=== PATIENT | female | born 2000 | race Two or more races ===

== ENCOUNTER 2022-07-13 18:46 | Inpatient (IN) | payer MEDICAID, OTHER ==
[~2022-07-13] VITALS: Ht 152.4 cm; Wt 46.4 kg
[2022-07-13 19:26] LABS: Urine Bacteria FEW /hpf (None Seen); Urine Blood 3+ /uL (Negative); Urine Mucus FEW (None Seen); Urine Specific Gravity 1.012 (1.001-1.035); Urine WBC 503 /hpf (0 - 5); Urine WBC Clumps PRESENT /hpf (None Seen)
[2022-07-13] MEDS ORDERED: SODIUM CHLORIDE 0.9% 1,000 ML IV ONE (21:45)
[2022-07-13] MEDS ORDERED: cefTRIAXone 1GM/50ML D5W 50 ML IV ONE (21:45)
[2022-07-13 21:47] LABS: Basophils # (auto) 0.1 10 ^3/uL (0-0.2); Basophils % (auto) 0.3 % (0.0-2.0); Eosinophils # (auto) 0.1 10 ^3/uL (0-0.8); Eosinophils % (auto) 0.4 % (0.0-7.0); Hematocrit 35.8 % (36.0-46.0); Hemoglobin 12.3 g/dL (12.2-16.2); Lymphocytes # (auto) 2.2 10 ^3/uL (0.4-5.4); Mean Corpuscular Hemoglobin 29.6 pg (28.0-32.0); Mean Corpuscular Hgb Conc. 34.2 g/dL (32.0-36.0); Mean Corpuscular Volume 86.3 fL (80.0-100.0); Monocytes # (auto) 0.8 10 ^3/uL (0-1.3); Monocytes % (auto) 3.8 % (0.0-12.0); Neutrophils # (auto) 18.3 10 ^3/uL (1.6-8.6); Neutrophils % (auto) 85.5 % (37.0-80.0); Nucleated Red Blood Cells % 0.1 %; Red Blood Cells 4.15 10^6/uL (4.0-5.20); Red Cell Distribution Width 13.2 % (11.8-14.3); White Blood Cell 21.5 10^3/uL (4.4-10.8)
[2022-07-13 22:04] LABS: Albumin 3.5 g/dL (3.4-5.0); Calcium 9.3 mg/dL (8.5-10.1); Potassium 4.1 mmol/L (3.5-5.1)
[2022-07-13 22:20] LABS: BUN/Creatinine Ratio 22.5 (10.0-20.0); Bilirubin, Total 0.2 mg/dL (0.2-1.0); Total Protein 7.3 g/dL (6.4-8.2)
[2022-07-13] MEDS ORDERED: SODIUM CHLORIDE 0.9% 2,000 ML IV ONE (23:00)
[2022-07-13] MEDS ORDERED: CEFTRIAXONE SODIUM 2 GM in D5W 5% 100 ML IV ONE (23:00)
[2022-07-13] MEDS ORDERED: ONDANSETRON HCL 4 MG/2 ML VIAL IV PRN (23:30)
[2022-07-13] MEDS ORDERED: DOCUSATE SOD 100 MG CAP PO PRN (23:30)
[2022-07-13] MEDS ORDERED: ACETAMINOPHEN 325 MG TAB PO PRN (23:30)
[2022-07-14] MEDS ORDERED: cefTRIAXone SOD 1,000 MG VL ONE (01:38)
[2022-07-14] MEDS: SODIUM CHLORIDE 0.9% 1,000 ML IV SCH ×3 (02:14→19:30)
[2022-07-14 05:32] LABS: Basophils # (auto) 0.2 10 ^3/uL (0-0.2); Basophils % (auto) 1.1 % (0.0-2.0); Eosinophils # (auto) 0.1 10 ^3/uL (0-0.8); Eosinophils % (auto) 0.5 % (0.0-7.0); Hematocrit 30.5 % (36.0-46.0); Hemoglobin 10.5 g/dL (12.2-16.2); Lymphocytes # (auto) 2.1 10 ^3/uL (0.4-5.4); Lymphocytes % (auto) 12.4 % (10.0-50.0); Mean Corpuscular Hemoglobin 29.9 pg (28.0-32.0); Mean Corpuscular Hgb Conc. 34.5 g/dL (32.0-36.0); Mean Corpuscular Volume 86.6 fL (80.0-100.0); Monocytes # (auto) 0.7 10 ^3/uL (0-1.3); Monocytes % (auto) 4.4 % (0.0-12.0); Neutrophils # (auto) 13.5 10 ^3/uL (1.6-8.6); Neutrophils % (auto) 81.6 % (37.0-80.0); Nucleated Red Blood Cells % 0.1 %; Red Blood Cells 3.52 10^6/uL (4.0-5.20); Red Cell Distribution Width 13.1 % (11.8-14.3); White Blood Cell 16.6 10^3/uL (4.4-10.8)
[2022-07-14 05:56] LABS: Albumin 2.6 g/dL (3.4-5.0); Potassium 3.9 mmol/L (3.5-5.1)
[2022-07-14 05:58] LABS: BUN/Creatinine Ratio 23.3 (10.0-20.0)
[2022-07-14 06:01] LABS: Bilirubin, Total 0.3 mg/dL (0.2-1.0)
[2022-07-14] MEDS: cefTRIAXone 1GM/50ML D5W 50 ML IV SCH (10:41)
[2022-07-14] MEDS: PRENATAL VITAMIN TAB PO SCH (11:01)
[2022-07-14 22:00] VITALS: BP 99/53
[2022-07-15 05:00] VITALS: BP 91/54
[2022-07-15] MEDS: SODIUM CHLORIDE 0.9% 1,000 ML IV SCH ×2 (05:11→19:00)
[2022-07-15 09:00] VITALS: BP 97/45
[2022-07-15] MEDS: PRENATAL VITAMIN TAB PO SCH (11:08)
[2022-07-15 13:00] VITALS: BP 98/50
[2022-07-15] MEDS: cefTRIAXone 1GM/50ML D5W 50 ML IV SCH (13:22)
[2022-07-15 17:00] VITALS: BP 103/55
[2022-07-15 22:00] VITALS: BP 128/47
[2022-07-16] MEDS: SODIUM CHLORIDE 0.9% 1,000 ML IV SCH ×2 (01:30→11:30)
[2022-07-16 05:00] VITALS: BP 100/49
[2022-07-16 09:00] VITALS: BP 100/42
[2022-07-16] MEDS: PRENATAL VITAMIN TAB PO SCH (09:25)
[2022-07-16] MEDS: cefTRIAXone 1GM/50ML D5W 50 ML IV SCH (09:25)
[2022-07-16] MEDS ORDERED: AUG875T PO (10:50)
[2022-07-16 12:59] VITALS: BP 114/61
== END 2022-07-16 14:00 | disposition home or self-care (01) | DRG 566 ==
LOC: ER 18:46 → OVERFLOW 23:33 → WEST WING 07-14 17:16
PROVIDERS: ADMIT Nurse Practitioner Family; ATTEND Internal Medicine
DX: O23.02 Infections of kidney in pregnancy, second trimester (principal); O99.112 Other diseases of the blood and blood-forming organs and certain disorders involving the immune mechanism complicating pregnancy, second trimester; B96.20 Unspecified Escherichia coli [E. coli] as the cause of diseases classified elsewhere; D72.829 Elevated white blood cell count, unspecified; Z3A.14 14 weeks gestation of pregnancy
CPT/HCPCS: 36415; 76775; 76805; 80053; 81001; 83605; 83690; 84702; 85025; 86900; 86901; 87040; 87086; 87088; 87186; G0378; J0696; J7060

== ENCOUNTER 2023-01-10 11:10 | Observation (INO) | payer MEDICAID ==
[~2023-01-10 11:10] MED LIST: AUG875T PO
[2023-01-10] MEDS ORDERED: PREN1TAB71 OR (12:54)
== END 2023-01-10 13:16 | disposition home or self-care (01) ==
LOC: LDRP 11:10
PROVIDERS: ADMIT Obstetrics & Gynecology; ATTEND Obstetrics & Gynecology
DX: O48.0 Post-term pregnancy (principal); Z3A.40 40 weeks gestation of pregnancy
CPT/HCPCS: 59025; 76818; 81002; G0378

== ENCOUNTER 2023-01-12 00:06 | Inpatient (IN) | payer MEDICAID ==
[~2023-01-12] VITALS: Ht 152.4 cm; Wt 49.9 kg
[~2023-01-12 00:06] MED LIST changes: +PREN1TAB71 OR
[2023-01-12] MEDS ORDERED: PHISODERM TOP SOLN 240ML BTL TOP PRN (00:45)
[2023-01-12] MEDS ORDERED: PENICILLIN G POT 5MIL/D5 50ML 50 ML IV ONE (00:45)
[2023-01-12] MEDS ORDERED: PROMETHAZINE HCL 25 MG/ML 1ML IV PRN (00:45)
[2023-01-12] MEDS ORDERED: LIDOCAINE 2%HCL (LOCAL ANESTH.) INJ 20ML MDV IJ PRN (00:45)
[2023-01-12 01:03] LABS: Basophils # (auto) 0.1 10 ^3/uL (0-0.2); Basophils % (auto) 0.5 % (0.0-2.0); Eosinophils # (auto) 0.1 10 ^3/uL (0-0.8); Eosinophils % (auto) 0.4 % (0.0-7.0); Hematocrit 34.9 % (36.0-46.0); Hemoglobin 11.7 g/dL (12.2-16.2); Lymphocytes % (auto) 26.7 % (10.0-50.0); Mean Corpuscular Hemoglobin 28.4 pg (28.0-32.0); Mean Corpuscular Hgb Conc. 33.4 g/dL (32.0-36.0); Mean Corpuscular Volume 84.9 fL (80.0-100.0); Monocytes # (auto) 0.9 10 ^3/uL (0-1.3); Monocytes % (auto) 6.1 % (0.0-12.0); Neutrophils # (auto) 9.9 10 ^3/uL (1.6-8.6); Neutrophils % (auto) 66.3 % (37.0-80.0); Red Blood Cells 4.11 10^6/uL (4.0-5.20); Red Cell Distribution Width 13.5 % (11.8-14.3); White Blood Cell 14.9 10^3/uL (4.4-10.8)
[2023-01-12 01:15] LABS: INR 0.91 (0.9-1.15); Partial Thromboplastin Time 25.9 SEC (24.5-34.5); Prothrombin Time 9.6 sec (9.3-11.8)
[2023-01-12] MEDS ORDERED: fentaNYL CITRATE 100 MCG/2 ML VL IV ONE (01:15)
[2023-01-12 01:22] LABS: Albumin 3.8 g/dL (3.2-4.8); Alkaline Phosphatase 291 U/L (46-116); Anion Gap 11 (5-15); Aspartate Aminotransferase 17 U/L (13-40); BUN/Creatinine Ratio 12.3 (10.0-20.0); Blood Urea Nitrogen 8 mg/dL (9-23); Calcium 9.3 mg/dL (8.7-10.4); Carbon Dioxide 19 mmol/L (20-30); Chloride 107 mmol/L (98-107); Glucose 85 mg/dL (74-106); Sodium 137 mmol/L (136-145)
[2023-01-12 01:23] LABS: Bilirubin, Total 0.4 mg/dL (0.2-1.0); Total Protein 6.5 g/dL (5.7-8.2)
[2023-01-12 01:24] LABS: Alanine Aminotransferase < 9 U/L (7-40)
[2023-01-12] MEDS ORDERED: ONDANSETRON HCL 4 MG/2 ML VIAL IV PRN (01:30)
[2023-01-12] MEDS ORDERED: ePHEDrine SULFATE 50 MG/ML AMP IV ONE (01:30)
[2023-01-12] MEDS ORDERED: NALOXONE HCL 0.4 MG/ML VIAL IV ONE (01:30)
[2023-01-12] MEDS ORDERED: ROPIVACAINE HCL 200 ML EPI SCH (01:30)
[2023-01-12] MEDS ORDERED: LACTATED RINGER'S 500 ML IV ONE (01:30)
[2023-01-12] MEDS: LACTATED RINGER'S 1,000 ML IV SCH ×3 (01:32→11:40)
[2023-01-12 03:49] LABS: Amphetamine Screen, Urine Neg (NEGATIVE); Barbiturate Scree,Urine Neg (NEGATIVE); Benzodiazephine Screen, Urine Neg (NEGATIVE); Cocaine Screen, Urine Neg (NEGATIVE)
[2023-01-12 03:50] LABS: Cannabinoid Screen, Urine Neg (NEGATIVE); Opiate Scree,Urine Neg (NEGATIVE); Phencyclidine Screen, Urine Neg (NEGATIVE)
[2023-01-12] MEDS ORDERED: PENICILLIN G POTASSIUM 2,500,000 UNITS in D5W 5% 50 ML IV SCH (04:45)
[2023-01-12] MEDS: WITCH HAZEL-GLYCERIN PAD TOP PRN (06:33)
[2023-01-12] MEDS: DERMOPLAST 60ML BOTTLE TOP PRN (06:34)
[2023-01-12] MEDS ORDERED: LACT. RINGERS/OXYTOCIN 20UNITS 500 ML IV ONE ×2 (07:00→07:30)
[2023-01-12] MEDS ORDERED: LACT. RINGERS/OXYTOCIN 20UNITS 1,000 ML IV SCH (12:30)
[2023-01-12] MEDS ORDERED: TERBUTALINE SULFATE 1 MG/ML 1ML VIAL SC PRN (12:30)
[2023-01-12] MEDS ORDERED: ACETAMINOPHEN 325 MG TAB PO PRN (15:30)
[2023-01-12] MEDS ORDERED: ONDANSETRON ODT 4 MG TAB PO PRN (15:30)
[2023-01-12 18:40] VITALS: BP 117/79; PULSE 88; RESP 16; TEMP 99; O2SAT 98
[2023-01-12] MEDS: IBUPROFEN 600 MG TAB PO PRN (18:47)
[2023-01-12] MEDS: DOCUSATE SOD 100 MG CAP PO SCH (22:24)
[2023-01-12 22:50] VITALS: BP 119/60; PULSE 93; RESP 16; TEMP 99.1; O2SAT 98
[2023-01-13] MEDS: WITCH HAZEL-GLYCERIN PAD TOP PRN (00:03)
[2023-01-13] MEDS ORDERED: IBU600T PO (02:53)
[2023-01-13 03:05] VITALS: BP 120/82; PULSE 74; RESP 16; TEMP 98.4; O2SAT 98
[2023-01-13 06:06] LABS: Rubella Antibodies, IgG 1.45 index (Immune >0.99)
[2023-01-13] MEDS: IBUPROFEN 600 MG TAB PO PRN ×2 (06:59→14:27)
[2023-01-13 07:00] VITALS: BP 109/64; PULSE 81; RESP 16; TEMP 99; O2SAT 99
[2023-01-13 07:15] VITALS: PULSE 81; RESP 18
[2023-01-13 08:33] LABS: Basophils # (auto) 0.1 10 ^3/uL (0-0.2); Basophils % (auto) 0.3 % (0.0-2.0); Eosinophils # (auto) 0 10 ^3/uL (0-0.8); Eosinophils % (auto) 0.1 % (0.0-7.0); Hematocrit 26.3 % (36.0-46.0); Hemoglobin 8.7 g/dL (12.2-16.2); Lymphocytes # (auto) 1.7 10 ^3/uL (0.4-5.4); Lymphocytes % (auto) 9.3 % (10.0-50.0); Mean Corpuscular Hemoglobin 28.4 pg (28.0-32.0); Mean Corpuscular Hgb Conc. 33.1 g/dL (32.0-36.0); Mean Corpuscular Volume 85.9 fL (80.0-100.0); Monocytes # (auto) 0.7 10 ^3/uL (0-1.3); Monocytes % (auto) 4.1 % (0.0-12.0); Neutrophils # (auto) 15.4 10 ^3/uL (1.6-8.6); Neutrophils % (auto) 86.2 % (37.0-80.0); Red Blood Cells 3.07 10^6/uL (4.0-5.20); White Blood Cell 17.8 10^3/uL (4.4-10.8)
[2023-01-13] MEDS ORDERED: DOCUSATE CALCIUM 240 MG CAP PO SCH (10:00)
[2023-01-13 10:50] VITALS: BP_SYST 120; BP_SYST 143; BP_DIAS 82; BP_DIAS 87; PULSE 76; PULSE 81; RESP 16; TEMP 98.9; O2SAT 98
[2023-01-13] MEDS: DERMOPLAST 60ML BOTTLE TOP PRN ×2 (11:28→15:48)
[2023-01-13] MEDS: DOCUSATE SOD 100 MG CAP PO SCH (11:39)
[2023-01-13 15:00] VITALS: BP 118/70; PULSE 76; RESP 16; TEMP 98.9; O2SAT 98
== END 2023-01-13 15:50 | disposition home or self-care (01) | DRG 542 ==
LOC: UNDOADMOB 00:06 → LDRP 00:06 → INTOOBSV 00:29 → OBSVTOIN 00:29 → LDRP 02:41
PROVIDERS: ADMIT Obstetrics & Gynecology; ATTEND Obstetrics & Gynecology
PROC: 10D07Z6 Extraction of Products of Conception, Vacuum, Via Natural or Artificial Opening (ICD-10-PCS; principal; 2023-01-12)
PROC: 0DQR0ZZ Repair Anal Sphincter, Open Approach (ICD-10-PCS; 2023-01-12)
PROC: 3E0R3BZ Introduction of Anesthetic Agent into Spinal Canal, Percutaneous Approach (ICD-10-PCS; 2023-01-12)
PROC: 00HU33Z Insertion of Infusion Device into Spinal Canal, Percutaneous Approach (ICD-10-PCS; 2023-01-12)
PROC: 0W8NXZZ Division of Female Perineum, External Approach (ICD-10-PCS; 2023-01-12)
DX: O48.0 Post-term pregnancy (principal); Z37.0 Single live birth; O70.20 Third degree perineal laceration during delivery, unspecified; O77.0 Labor and delivery complicated by meconium in amniotic fluid; Z3A.40 40 weeks gestation of pregnancy
CPT/HCPCS: 36415; 59025; 59409; 62282; 80053; 80307; 81002; 85025; 85610; 85730; 86592; 86703; 86762; 86850; 86900; 86901; 87340; 94760; 96360; 96361; 96366; 96374; G0378; J2405; J2590

== ENCOUNTER 2025-01-06 11:58 | Emergency (ER) | payer MEDICAID ==
[~2025-01-06] VITALS: Ht 149.9 cm; Wt 40.9 kg
[~2025-01-06 11:58] MED LIST changes: +IBU600T PO
--- NOTE | 2025-01-06 12:49 | ED.PDOC ---
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 Patient describes pain as sharp, constant, non radiating and worsens at night time. 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 Patient denies any alleviating factors, vomiting, fever, chills, back pain, or recent trauma. No medical history reported. Chief Complaint: Abdominal Pain Time Seen by MD: 12:32 Reviewed Notes: Nurses Notes, Medications, Allergies Allergies: Coded Allergies: NO KNOWN ALLERGIES (Unverified , 07/13/22) Home Meds Active Scripts Ibuprofen Micronized (MOTRIN TABLET) 600 Mg Tb, 600 MG PO Q6HP PRN for 10 Days, #40 TAB Prov:MIGUEL ÁNGEL DUPREE DO 01/13/23 Amoxicillin & Pot Clavulanate (AUGMENTIN TABLET) 875 Mg Tb, 875 MG PO BID, #20 TAB Prov:CHRIS SCHUSTER MD 07/16/22 Reported Medications Vit W/ Ferrous Fumara (PNV PLUS MULTIVI) Plus Tab, 1 OR, TAB 01/10/23 Information Source: Patient Mode of Arrival: Ambulatory Timing: Hours Severity: Moderate Vaginal Discharge: None Vaginal Lesions: None Bleeding Quality: Products of Conception Vaginal Mass: None Onset Of Mass/Bleeding: Spontaneous Sexual Activity: Last Consensual [place]: Unknown Control: None History of: Current Associated Signs and Symptoms: Vaginal Bleeding, Abdominal Pain, N/V Past Medical History PAST MEDICAL HISTORY: Denies Surgical History: Denies all surgeries CHIEF PHARMACIST History: No Pertinent CHIEF PHARMACIST History Social History Smoker: Non-Smoker Alcohol: Denies ETOH Use Drugs: Denies Drug Use Lives In: Home Constitutional: denies: chills, diaphoresis, fatigue, fever, malaise, sweats, weakness, others EENTM: denies: blurred vision, double vision, ear bleeding, ear discharge, ear drainage, ear pain, ear ringing, eye pain, eye redness, hearing loss, mouth pain, mouth swelling, nasal discharge, nose bleeding, nose congestion, nose pain, photophobia, tearing, throat pain, throat swelling, voice changes, others Respiratory: denies: cough, hemoptysis, orthopnea, SOB at rest, shortness of breath, SOB with excertion, stridor, wheezing, others Cardiovascular: denies: chest pain, dizzy spells, diaphoresis, Dyspnea on exertion, edema, irregular heart beat, left arm pain, lightheadedness, palpitations, PND, syncope, others Gastrointestinal: reports: abdominal pain, nausea; denies: abdomen distended, blood streaked bowels, constipated, diarrhea, dysphagia, difficulty swallowing, hematemesis, melena, poor appetite, poor fluid intake, rectal bleeding, rectal pain, vomiting, others Genitourinary: reports: abnormal vagina bleeding, ; denies: burning, dy spareunia, dysuria, flank pain, frequency, hematuria, incontinence, pain, vagina discharge, urgency, others Neurological: denies: dizziness, fainting, headache, left sided numbness, left sided weakness, numbness, paresthesia, pre-existing deficit, right sided numbness, right sided weakness, seizure, speech problems, tingling, tremors, weakness, others Musculoskeletal: denies: back pain, gout, joint pain, joint swelling, muscle pain, muscle stiffness, neck pain, others Integumetry: denies: bruises, change in color, change in hair/nails, dryness, laceration, lesions, lumps, rash, wounds, others Allergic/Immunocompromised: denies: Difficulty Healing, Frequent Infections, Hives, Itching, others Hematologic/Lymphatic: denies: anemia, blood clots, easy bleeding, easy bruising, swollen glands, others Endocrine: denies: excessive hunger, excessive sweating, excessive thirst, excessive urination, flushing, intolerance to cold, intolerance to heat, unexplained weight gain, unexplained weight loss, others Psychiatric: denies: anxiety, bipolar disorder, depression, hopeless, panic disorder, schizophrenia, sleepless, suicidal, others All Other Systems: Reviewed and Negative Physical Exam General Appearance: Moderate Distress HEENT: Normal ENT Inspection, Pharynx Normal, TMs Normal Neck: Full Range of Motion, Non-Tender, Normal, Normal Inspection Respiratory: Chest Non-Tender, Lungs Clear, No Accessory Muscle Use, No Respiratory Distress, Normal Breath Sounds Cardiovascular: No Edema, No JVD, No Murmur, No Gallop, Normal Peripheral Pulses, Regular Rate/Rhythm Breast Exam: Deferred Gastrointestinal: No Organomegaly, Non Tender, No Pulsatile Mass, Normal Bowel Sounds, Soft Genitalia: Deferred Pelvic: Deferred Rectal: Deferred Extremities: No calf tenderness, Normal capillary refill, Normal inspection, Normal range of motion, Non-tender, No pedal edema Musculoskeletal : Apperance: Normal Neurologic: Alert, staffing administrator II-XII nml as Tested, No Motor Deficits, Normal Affect, Normal Mood, No Sensory Deficits Cerebellar Function: Normal Reflexes: Normal Skin: Dry, Normal Color, Warm Peripheral Pulses: 3+ Radial (R), 3+ Radial (L) Lymphatic: No Adenopathy Was a procedure done? Was a procedure done?: No Differential Diagnosis (CHIEF PHARMACIST) Vaginal Bleeding: - Complete, - Incomplete, - Inevitable, - Threatened, Ectopic X-Ray, Labs, Meds, VS Vital Signs Date Time Temp Pulse Resp B/P (MAP) Pulse Ox O2 Delivery O2 Flow Rate FiO2 01/06/25 14:34 98.2 82 18 124/74 (91) 98 98.2 01/06/25 14:34 82 18 98 Room Air 01/06/25 12:04 98.1 82 16 112/77 100 98.1 Lab Test 01/06/25 14:00 01/06/25 12:55 Range/Units Urine Color Yellow Yellow Urine Clarity Clear Clear Urine pH 6.5 5.0-9.0 Urine Specific [place] 1.026 1.001-1.035 Urine Protein Negative Negative Urine Ketones 1+ H Negative Urine Blood Negative Negative /uL Urine Nitrite Negative Negative Urine Bilirubin Negative Negative Urine Urobilinogen Normal Negative mg/dL Urine Leukocyte Esterase 1+ Negative /uL Urine RBC 1 0 - 4 /hpf Urine Microscopic WBC 1 0-5 /HPF Urine Squamous Epithelial Cells Few <5 /hpf Urine Bacteria Few H None Seen /hpf Urine Mucus Few None Seen Urine Glucose Normal Normal mg/dL Beta HCG, Quantitative 41222.6 H 1.5-4.2 mIU/mL Patient alert. Complaining of abdominal cramping. Vitals stable. Answering questions. UA shows UTI. Ultrasound reviewed does show live fetus. Was given prescription of Keflex antibiotic. Was told to follow up with her primary care physician. Was told to come back if there is any problem. Time of 1ST Reevaluation: 12:44 Reevaluation 1ST: Improved Patient Education/Counseling: Diagnosis, Treatment, Prognosis Family Education/Counseling: No Family Present Departure 1 Departure Time of Disposition: 15:21 Impression: Primary Impression: Normal Qualified Codes: Z34.90 - Encounter for supervision of normal , unspecified, unspecified trimester Additional Impression: Urinary tract infection Qualified Codes: N30.00 - Acute cystitis without hematuria Disposition: 01 HOME / SELF CARE / HOMELESS Condition: Good e-Prescriptions Cephalexin (KEFLEX CAPSULE) 250 Mg Cp 250 MG PO QID for 7 Days, #28 BOTTLE Prov: LIZBETH POLLACK MD 01/06/25 Discharged With: Self Critical Care Note Critical Care Time?: No Stability Stability form required: No I personally scribed for LIZBETH POLLACK MD ([email or web address]) on 01/06/25 at 12:48. Electronically submitted by Priyanka Ramirez ([facility]). LIZBETH POLLACK MD Jan 06, 2025 12:48
[2025-01-06 14:14] LABS: Urine Protein, UAD Negative (Negative)
[2025-01-06 14:34] VITALS: BP 124/74; PULSE 82; RESP 18; TEMP 98.2; O2SAT 98
--- NOTE | 2025-01-06 15:03 | DVH ---
FIRST TRIMESTER OBSTETRICAL ULTRASOUND HISTORY: cramping. Pain. . Beta HCG 33307. LMP 11/22/2024. EGA 6 weeks 3 days (OM[facility] 08/29/2025). COMPARISON: US OB TRANS VAGINAL US on DOS: 01/06/25, US BIOPHYSICAL PROFILE on DOS: 01/10/23 TECHNIQUE: Transabdominal and endovaginal imaging of the pelvis. FINDINGS: BIOMETRY: MSD: 1.98 cm, corresponding to 6 weeks 3 days CRL: 0.50 cm, corresponding to 6 weeks 1 days Yolk sac: Identified. Sonographic age: 6 weeks 1 days, corresponding to an OMID of 08/31/2025 HEART RATE: 124 bpm UTERUS: The uterus is anteverted and measures approximately 8.7 x 5.5 x 6.3 cm. There is an intrauter ine gestational sac. CERVIX: Long and closed. ADNEXA: The right ovary measures approximately 3.5 x 3.5 x 4.3 cm. There is an anechoic cystic struct ure within the right ovary measuring 2.6 cm. The left ovary measures approximately 3.7 x 1.3 x 2.8 cm . Expected flow is identified within both ovaries on spectral and color doppler imaging. OTHER: None. IMPRESSION: Single live intrauterine gestation. Estimated gestational age 6 weeks 1 day corresponding to an estim ated date of delivery 08/31/2025.
--- NOTE | 2025-01-06 15:04 | DVH ---
FIRST TRIMESTER OBSTETRICAL ULTRASOUND HISTORY: cramping. Pain. . Beta HCG 38450. LMP 11/22/2024. EGA 6 weeks 3 days ([facility] 08/29/2025). COMPARISON: US OB TRANS VAGINAL US on DOS: 01/06/25, US BIOPHYSICAL PROFILE on DOS: 01/10/23 TECHNIQUE: Transabdominal and endovaginal imaging of the pelvis. FINDINGS: BIOMETRY: MSD: 1.98 cm, corresponding to 6 weeks 3 days CRL: 0.50 cm, corresponding to 6 weeks 1 days Yolk sac: Identified. Sonographic age: 6 weeks 1 days, corresponding to an OMID of 08/31/2025 HEART RATE: 124 bpm UTERUS: The uterus is anteverted and measures approximately 8.7 x 5.5 x 6.3 cm. There is an intrauter ine gestational sac. CERVIX: Long and closed. ADNEXA: The right ovary measures approximately 3.5 x 3.5 x 4.3 cm. There is an anechoic cystic struct ure within the right ovary measuring 2.6 cm. The left ovary measures approximately 3.7 x 1.3 x 2.8 cm . Expected flow is identified within both ovaries on spectral and color doppler imaging. OTHER: None. IMPRESSION: Single live intrauterine gestation. Estimated gestational age 6 weeks 1 day corresponding to an estim ated date of delivery 08/31/2025.
[2025-01-06] MEDS ORDERED: CEPH250C PO (15:24)
== END 2025-01-06 16:03 | disposition home or self-care (01) ==
LOC: ER 11:58
DX: Z34.90 Encounter for supervision of normal pregnancy, unspecified, unspecified trimester (principal); N39.0 Urinary tract infection, site not specified; Z3A.01 Less than 8 weeks gestation of pregnancy
CPT/HCPCS: 36415; 76801; 76817; 81001; 84702; 99284; J7030